=== PATIENT | male | born 1985 | race Caucasian/White ===

== ENCOUNTER 2020-12-03 08:53 | Emergency (ER) | payer OTHER ==
[2020-12-03 09:05] VITALS: BP 138/79
[2020-12-03] MEDS ORDERED: PROPARACAINE 0.5% OPHTH DROPS 15 ML LEFTEYE STA (09:07)
--- NOTE | 2020-12-03 09:38 | ED Physician Documentation ---
PD HPI OPHTHO - Stated complaint Stated Complaint: EYE PAIN - Chief complaint Chief Complaint: Heent - History obtained from History obtained from: Patient - Additional information Additional information: 35-year-old man with 20/20 vision at baseline, no corrective lenses, presents with eye irritation after hitting his left eye on a metal strap while working into the house on Thursday. Also with right eye irritation. He states that he does have chronic dry eyes and has had corneal abrasions before. Denies other injury Review of Systems Constitutional: denies: Fever Eyes: reports: Photophobia, Irritation. denies: Loss of vision, Decreased vision, Discharge PD PAST MEDICAL HISTORY - Past Medical History Past Medical History: Yes Cardiovascular: None Respiratory: None Neuro: None Endocrine/Autoimmune: None GI: None : None HEENT: None Psych: Depression, Anxiety Musculoskeletal: None Derm: None - Past Surgical History Past Surgical History: Yes - Present Medications Home Medications: Ambulatory Orders Medication Instructions Recorded Confirmed Mineral Oil/Petrolatum,White 3.5 gm OP QPM #1 bottle 12/03/20 [Lubricant Pm Eye Ointment] Ofloxacin 0.3% Ophth Drops 1 drops OPTH Q4H #5 ml 12/03/20 [Ocuflox 0.3% Ophth Drops] PARoxetine HCl [Paxil] 40 mg PO DAILY 12/03/20 12/03/20 - Allergies Allergies/Adverse Reactions: Allergies Allergy/AdvReac Type Severity Reaction Status Date / Time No Known Drug Allergies Allergy Verified 12/03/20 09:01 - Social History Does the pt smoke?: No Smoking Status: Never smoker Does the pt drink ETOH?: Yes Does the pt have substance abuse?: No - Immunizations Immunizations are current?: Yes PD ED PE NORMAL - Vitals Vital signs reviewed: Yes - General General: Alert and oriented X 3, No acute distress, Well developed/nourished - HEENT HEENT: Atraumatic, PERRL, EOMI, Other (Bilateral corneal abrasions on fluorescein exam. No foreign body) Results - Vitals Vitals: Vital Signs - 24 hr 12/03/20 09:02 Temperature 36.7 C Heart Rate 60 Respiratory 18 Rate Blood Pressure 138/79 H O2 Saturation 97 Oxygen O2 Source Room air PD MEDICAL DECISION MAKING - ED course ED course: 35-year-old man presents with corneal abrasion. Eyedrops prescribed. Patient will follow up with his primary doctor return precautions given. Departure - Departure Disposition: 01 Home, Self Care Clinical Impression: Corneal abrasion Condition: Good Instructions: ED Eye Injury Corneal Abrasion Prescriptions: Mineral Oil/Petrolatum,White [Lubricant Pm Eye Ointment] 3.5 gm OP QPM #1 bottle Ofloxacin 0.3% Ophth Drops [Ocuflox 0.3% Ophth Drops] 1 drops OPTH Q4H #5 ml Comments: You are seen in the emergency department for corneal abrasion, a scratch on the eye. Make sure you take your eyedrops as prescribed. Return to the emergency department if you have any new or worsening symptoms or other concerns. Wear safety goggles goggles when working around the house. Follow-up with your primary doctor
== END 2020-12-03 09:57 | disposition home or self-care (01) ==
LOC: ED 08:53
DX: S05.02XA Injury of conjunctiva and corneal abrasion without foreign body, left eye, initial encounter (principal); S05.01XA Injury of conjunctiva and corneal abrasion without foreign body, right eye, initial encounter; W20.8XXA Other cause of strike by thrown, projected or falling object, initial encounter; Y93.H3 Activity, building and construction; Y92.009 Unspecified place in unspecified non-institutional (private) residence as the place of occurrence of the external cause
CPT/HCPCS: 99282; 99283

== ENCOUNTER 2021-01-25 01:49 | Outpatient (CLI) | payer OTHER | END 2021-01-25 01:50 | disposition critical access hospital (66) | LOC: EMS 01:49 | DX: S80.212A Abrasion, left knee, initial encounter (principal); S60.512A Abrasion of left hand, initial encounter; V28.4XXA Motorcycle driver injured in noncollision transport accident in traffic accident, initial encounter; Y93.55 Activity, bike riding; Y92.410 Unspecified street and highway as the place of occurrence of the external cause; R41.3 Other amnesia | CPT/HCPCS: A0425; A0427 ==

== ENCOUNTER 2021-01-25 02:05 | Emergency (ER) | payer OTHER ==
[2021-01-25] MEDS ORDERED: KETOROLAC 30 MG/ML VIAL IVP STA (02:15)
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
[2021-01-25 02:45] LABS: BASOPHILS % (AUTO) 0.5 %; EOSINOPHILS # (AUTO) 0.3 10^3/uL (0.0-0.7); EOSINOPHILS % (AUTO) 3.3 %; HCT - HEMATOCRIT 40.5 % (42.0-52.0); HGB - HEMOGLOBIN 13.9 g/dL (14.0-18.0); LYMPHOCYTES # (AUTO) 2.3 10^3/uL (1.5-3.5); LYMPHOCYTES % (AUTO) 27.4 %; MEAN CORPUSCULAR HEMOGLOBIN 32.1 pg (27.0-31.0); MEAN CORPUSCULAR HGB CONC 34.3 g/dL (32.0-36.0); MEAN CORPUSCULAR VOLUME 93.5 fL (80.0-94.0); MEAN PLATELET VOLUME 9.6 fL (7.4-11.4); MONOCYTES # (AUTO) 0.7 10^3/uL (0.0-1.0); MONOCYTES % (AUTO) 8.7 %; NEUTROPHILS % (AUTO) 59.9 %; PLT - PLATELET COUNT 258 10^3/uL (130-450); RED BLOOD COUNT 4.33 10^6/uL (4.70-6.10); RED CELL DISTRIBUTION WIDTH 13.6 % (12.0-15.0); WHITE BLOOD COUNT 8.3 x10^3/uL (4.8-10.8)
[2021-01-25 02:55] LABS: ALBUMIN 4.2 g/dL (3.2-5.5); ALBUMIN/GLOBULIN RATIO 1.4 (1.0-2.2); BILIRUBIN,TOTAL 0.9 mg/dL (0.2-1.0); CALCIUM 8.8 mg/dL (8.5-10.3); CREATININE 1.1 mg/dL (0.6-1.2); POTASSIUM 3.6 mmol/L (3.5-5.0); TOTAL PROTEIN 7.3 g/dL (6.7-8.2)
[2021-01-25] MEDS ORDERED: LIDOCAINE VISCOUS 2% 100 ML BOTTLE MM STA (03:04)
[2021-01-25] MEDS ORDERED: LIDOCAINE VISCOUS 2% 15 ML UDC ONE (03:07)
[2021-01-25] MEDS ORDERED: BACITRACIN ZINC OINT 1 PACKET TOP STA ×2 (03:46→03:52)
[2021-01-25] MEDS ORDERED: ACETAMINOPHEN 325 MG TABLET PO STA (04:06)
[2021-01-25] MEDS ORDERED: MORPHINE 2 MG/ML CARPUJECT IVP STA (04:06)
[2021-01-25 05:20] VITALS: BP 150/69
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
--- NOTE | 2021-01-25 08:12 | CT Report ---
PROCEDURE: CERVICAL SPINE WO INDICATIONS: MCA - neck/thoracic pain TECHNIQUE: Noncontrast 3 mm thick sections acquired from the skull base to the T3 Sagittal and coronal reformats were then constructed. For radiation dose reduction, the following was used: automated exposure co ntrol, adjustment of mA and/or kV according to patient size. COMPARISON: None. FINDINGS: Image quality: Excellent. Bones: No fracture or traumatic listhesis. Facets congruent without subluxation or dislocation. Vis ualized superior ribs are intact. Soft tissues: Prevertebral soft tissues are normal in thickness. No paravertebral hematomas. No ap ical pneumothoraces. IMPRESSION: No CT evidence of acute traumatic cervical spine injury. Reviewed by: Otto Bradford MD on 01/25/2021 8:11 AM PDT Approved by: Otto Bradford MD on 01/25/2021 8:11 AM PDT Station ID: [id number]
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
--- NOTE | 2021-01-25 08:51 | XRAY Report ---
PROCEDURE: Hand 3 View RT INDICATIONS: MCA- hand pain 5th MC area TECHNIQUE: 3 views of the hand(s) acquired. COMPARISON: None FINDINGS: Bones: Remote healed fifth metacarpal fracture. No acute fracture. No suspicious bony lesions. Soft tissues: No suspicious soft tissue calcifications. IMPRESSION: No acute finding. Remote healed fifth metacarpal fracture. No significant change from preliminary rep ort. Reviewed by: Otto Bradford MD on 01/25/2021 8:50 AM PDT Approved by: Otto Bradford MD on 01/25/2021 8:50 AM PDT Station ID: [id number]
--- NOTE | 2021-01-25 08:52 | XRAY Report ---
PROCEDURE: Ankle 3 View LT INDICATIONS: MCA - ankle pain TECHNIQUE: 3 views of the ankle were acquired. COMPARISON: None FINDINGS: Bones: No fractures or dislocations. Ankle mortise is normally aligned. Mild ankle mortise joint sp jo narrowing and anterior tibial osteophytosis. No suspicious bony lesions. Soft tissues: No tibiotalar joint effusion. Achilles tendon appears normal. IMPRESSION: No acute finding. No significant change from pulmonary report. Reviewed by: Otto Bradford MD on 01/25/2021 8:50 AM PDT Approved by: Otto Bradford MD on 01/25/2021 8:50 AM PDT Station ID: [id number]
== END 2021-01-25 05:35 | disposition home or self-care (01) ==
LOC: EDUNIT# → SUPCPDRO 02:05 → ED 02:05
DX: S32.018A Other fracture of first lumbar vertebra, initial encounter for closed fracture (principal); S06.0X9A Concussion with loss of consciousness of unspecified duration, initial encounter; S93.402A Sprain of unspecified ligament of left ankle, initial encounter; S80.212A Abrasion, left knee, initial encounter; S90.812A Abrasion, left foot, initial encounter; V28.0XXA Motorcycle driver injured in noncollision transport accident in nontraffic accident, initial encounter; Y92.410 Unspecified street and highway as the place of occurrence of the external cause; F32.9 Major depressive disorder, single episode, unspecified; F41.9 Anxiety disorder, unspecified; Z79.899 Other long term (current) drug therapy
CPT/HCPCS: 36415; 70450; 72125; 72128; 73130; 73610; 80053; 83690; 85025; 96374; 96375; 99284; A9270

== ENCOUNTER 2021-02-28 10:39 | Outpatient (CLI) | payer OTHER ==
[2021-02-28 11:27] VITALS: BP 113/74
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
== END 2021-02-28 10:40 | disposition home or self-care (01) ==
LOC: SC 10:39
PROVIDERS: ATTEND Nurse Practitioner Family
DX: G47.33 Obstructive sleep apnea (adult) (pediatric) (principal); E66.9 Obesity, unspecified; Z68.38 Body mass index [BMI] 38.0-38.9, adult
CPT/HCPCS: 99203; 99212

== ENCOUNTER 2021-11-19 14:21 | Outpatient (CLI) | payer OTHER ==
[2021-11-19 15:22] VITALS: BP 154/92
--- NOTE | 2021-11-19 15:22 | SLEEP CARE CONSULTATION ---
Information from patient questionnaire entered by Isabel Trent MA. I have reviewed and concur with the information entered by Isabel Trent MA. This document represents the service I personally performed and the decisions made by , Chiquita Lehman ARNP. History of Present Illness Service Date and Time: 11/19/2021 1421 Previous diagnosis: Mild, Obstructive Sleep Apnea-Hypopnea Syndrome AHI: 7.0 (in 2016) Reason for follow up: first compliance (RESMED, FIGUEROA 10/14/2021), first compliance after device update Equipment type: CPAP Equipment obtained from: Other ([facility]) Mask style: Full face Mask brand: Resmed ([id number]) Backup mask available: No (will keep old mask when replaced) Last cushion change: 2 weeks Prior sleep studies: Yes Year and Where: 11/2016 [facility] additional information: GABBY LEON was diagnosed to have mild, AHI 7.0, obstructive sleep apnea- hypopnea syndrome and returned today for CPAP therapy first compliance after updating device follow-up. Sleep Study - Results Prior sleep studies: Yes Year and Where: 11/2016 [facility] CPAP Compliance Data - Data Reviewed with Patient Average duration of nightly device use: 7 HOURS 9 MINUTES Compliance rate %: 97 (10/19/2021-11/17/2021) Current pressure setting (cmH2O): 10-14 Average residual AHI: 1.4 Central apnea: .3 Obstructive apnea: .8 Hypopnea: .1 Average large leak: 8.2 Subjective Missed days of use due to: reports: travel ( [employer]) Patient concerns: reports: mask leak noise, condensation in mask/hose, dry mouth, nose, throat. denies: aerophagia, mask discomfort, air blowing in eyes, nasal congestion, epistaxis, other Observed to snore while using device: No Current pressure setting perceived as: comfortable On therapy, patient: reports: sleeping better, awakening more refreshed, being more awake and alert during the day, more rested overall. denies: drowsiness while driving Initial [place] Sleepiness Scale score: 15 (in 02/2021) Current [place] Sleepiness Scale score: 15 (11/19/2021) Allergies and Home Medications Known drug allergies: No Drug allergies reviewed: Yes Home medication list reviewed: Yes (PAROXETINE 60MG OD, dose increased) Allergy and home medication list: Allergies No Known Drug Allergies Allergy (Verified 01/25/21 02:25) Review of Systems Review of systems same as previous: Yes (no changes) Physical Exam Vital signs obtained and entered by: JOHN YUSUF Blood Pressure: 154/92 (RESP 18, PULSE 64, RIGHT,) Cuff size: wrist Heart Rate: 63 O2 Saturation: 98 (PAPER) Height: 6 ft 5 in Weight: 320 lb Weight change since last visit: 4 lb loss Body Mass Index: 37.9 BMI Classification: Obese Impression and Plan 1. Obstructive Sleep Apnea-Hypopnea Syndrome, mild, with good treatment compliance and good apnea control. On CPAP therapy, the patient has better sleep quality and is more rested overall. He has had some condensation in the tubing but states it is only when he overfills the water chamber. He has also had some oral dryness. Oral dryness can be reduced by adjusting humidity setting higher or heated hose lower or by adjusting both settings. Verbal instructions given on how to change humidity and heated hose settings with rationale explaining why to change. Patient denies problems with nasal congestion, epistaxis, skin irritation or aerophagia. Patient's apnea severity and rationale for treatment to reduce apnea, improve sleep quality and reduce cardiovascular and cerebrovascular events was reviewed. I also reviewed the benefit of consistent device use of CPAP for anxiety and ADD. 2. Obesity, unspecified. Patient has lost weight. Currently patients BMI is 37.9. Obesity increases the risk of apnea, CPAP pressure requirements and overall health risks especially cardiovascular and diabetes. Thus patient is advised to lose weight. Weight loss can be done with reducing portion size, reducing refined foods and balancing content with vegetables, fruit and whole grain foods. In addition, patient encouraged to get regular exercise. The patient's CPAP pressure range should accommodate some weight loss. Symptoms to report for additional pressure adjustment discussed. * Continue auto CPAP pressure at 10-14 cmH2O * Notify me if snoring with mask or feeling that the pressure is too much or too little * Attempt to lose weight * Call this office if any problems using CPAP * Return for follow up in 1 year, or sooner if concerns arise Counseling Topics: Spare mask, Weight loss health impact Visit Type: In Office Time Spent with Patient (minutes): 20 Provider Statement: I spent 100% of the Face to Face Visit with the patient with greater than 50% spent counseling the patient and coordination of care.
== END 2021-11-19 14:22 | disposition home or self-care (01) ==
LOC: SC 14:21
PROVIDERS: ATTEND Nurse Practitioner Family
DX: G47.33 Obstructive sleep apnea (adult) (pediatric) (principal); E66.9 Obesity, unspecified; Z68.37 Body mass index [BMI] 37.0-37.9, adult
CPT/HCPCS: 99212; 99213

== ENCOUNTER 2023-01-26 11:16 | Emergency (ER) | payer OTHER ==
--- NOTE | 2023-01-26 12:19 | ED Physician Documentation ---
History of Present Illness - Stated complaint Stated Complaint: H/A, SORE THROAT - Chief complaint Chief Complaint: General - History obtained from History obtained from: Patient - Additonal information Additional information: Otherwise healthy 37-year-old gentleman presents with 2 days of mild gradual onset headache, sore throat, and urethral discharge without dysuria. He has had 3 sexual partners in the last 6 months. He does not know of any contagious illnesses that he has been exposed to. Denies fevers. PD PAST MEDICAL HISTORY - Past Medical History Cardiovascular: None Respiratory: None Neuro: None Endocrine/Autoimmune: None GI: None : None HEENT: None Psych: Depression, Anxiety Musculoskeletal: None Derm: None - Past Surgical History Past Surgical History: Yes - Present Medications Home Medications: Ambulatory Orders Medication Instructions Recorded Confirmed PARoxetine HCL [Paxil] 40 mg PO DAILY 12/03/20 01/25/21 HYDROcod/ACETAM 5/325 [[place] 5/325] 1 ea PO Q6H PRN #15 tablet 01/25/21 Doxycycline [Vibramycin] 100 mg PO BID #14 tablet 01/26/23 - Allergies Allergies/Adverse Reactions: Allergies Allergy/AdvReac Type Severity Reaction Status Date / Time No Known Drug Allergies Allergy Verified 01/25/21 02:25 - Social History Does the pt smoke?: No Smoking Status: Never smoker Does the pt drink ETOH?: Yes Does the pt have substance abuse?: No - Immunizations Immunizations are current?: Yes - POLST Patient has POLST: No PD ED PE NORMAL - Vitals Vital signs reviewed: Yes - General General: Alert and oriented X 3, No acute distress - HEENT HEENT: PERRL, EOMI, Other (Mildly red tonsillar pillars without exudates) - Neck Neck: Supple, no meningeal sign, No bony TTP - Abdomen Abdomen: Non tender - Neuro Neuro: Alert and oriented X 3, Normal speech Results - Vitals Vitals: Vital Signs - 24 hr 01/26/23 01/26/23 11:48 13:03 Temperature 36.7 C 36.6 C Heart Rate 84 82 Respiratory 20 19 Rate Blood Pressure 140/69 H 139/65 H O2 Saturation 97 98 Oxygen O2 Source Room air - Labs Labs: Laboratory Tests 01/26/23 01/26/23 12:00 12:30 Chlam trachomat DNA PCR NEGATIVE N.gonorrhoeae DNA (PCR) NEGATIVE Group A Strep Rapid Negative T. vaginalis (PCR) NEGATIVE PD Medical Decision Making - ED course ED course: 37-year-old gentleman with combination of benign appearing pharyngitis and urethritis. Strep negative, will treat for urethritis with ceftriaxone 500 mg IM and 1 week of doxycycline. Departure - Departure Disposition: 01 Home, Self Care Clinical Impression: Urethritis Condition: Good Record reviewed to determine appropriate education?: Yes Instructions: ED Urethritis Infec Vs Inflam Male Prescriptions: Doxycycline [Vibramycin] 100 mg PO BID #14 tablet Comments: Your strep test is negative. Results of the urine test for STDs are pending and we will call you with pertinent positive results, but given the symptoms and combination of sore throat I am treating you for the most common etiologies of that with antibiotics. Specifically if you end up having gonorrhea or chlamydia you will have the specific treatment necessary for that. Stay out of the sun while on the doxycycline antibiotic as it will make you sun sensitive. Call your doctor to arrange a follow-up appointment, make the next available appointment. In the interim, return anytime if worse or if new symptoms develop. Discharge Date/Time: 01/26/23 13:24
[2023-01-26 12:43] LABS: RAPID STREP SCREEN Negative (Negative)
[2023-01-26] MEDS ORDERED: LIDOCAINE 1% 2 ML VIAL MC ONE (12:52)
[2023-01-26] MEDS ORDERED: cefTRIAXone 500 MG VIAL IM STA (12:52)
[2023-01-26 13:08] VITALS: BP 139/65; O2SAT 98
[2023-01-26 21:26] LABS: CHLAMYDIA TRACHOMATIS DNA NEGATIVE (NEGATIVE); NEISSERIA GONORRHOEAE DNA NEGATIVE (NEGATIVE); TRICHOMONAS VAGINALIS DNA NEGATIVE (NEGATIVE)
== END 2023-01-26 13:24 | disposition home or self-care (01) ==
LOC: ED 11:16
DX: N34.2 Other urethritis (principal)
CPT/HCPCS: 87070; 87430; 87491; 87591; 87661; 96372; 99283

== ENCOUNTER 2023-03-19 08:40 | Outpatient (CLI) | payer OTHER | END 2023-03-19 08:41 | disposition EMS.NT | LOC: EMS 08:40 | DX: Z04.1 Encounter for examination and observation following transport accident (principal) ==

== ENCOUNTER 2023-03-20 11:32 | Emergency (ER) | payer OTHER ==
[2023-03-20 11:43] VITALS: BP 146/81; O2SAT 95
--- NOTE | 2023-03-20 12:55 | XRAY Report ---
PROCEDURE: Shoulder 3 View RT INDICATIONS: trauma TECHNIQUE: 3 views of the shoulder were acquired. COMPARISON: None. FINDINGS: Bones: No fractures or dislocations. No suspicious bony lesions. Visualized ribs appear intact. Soft tissues: No suspicious soft tissue calcifications. The visualized lungs are within normal limi ts. IMPRESSION: No acute bony abnormality. If pain persists with conservative management, consider repeat radiographs in 10-14 days or cross-sectional imaging. Reviewed by: Sunny Cano MD on 03/20/2023 12:54 PM PDT Approved by: Sunny Cano MD on 03/20/2023 12:54 PM PDT Station ID: [id number]
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
== END 2023-03-20 13:36 | disposition home or self-care (01) ==
LOC: ED 11:32
DX: S20.211A Contusion of right front wall of thorax, initial encounter (principal); S40.011A Contusion of right shoulder, initial encounter; V57.5XXA Driver of pick-up truck or van injured in collision with fixed or stationary object in traffic accident, initial encounter; Y93.89 Activity, other specified; Y92.410 Unspecified street and highway as the place of occurrence of the external cause
CPT/HCPCS: 99283

== ENCOUNTER 2023-05-19 16:00 | Outpatient (CLI) | payer OTHER ==
--- NOTE | 2023-05-20 07:40 | SLEEP CARE CONSULTATION ---
Information from patient questionnaire entered by Tunde Krishnamurthy. I have reviewed and concur with the information entered by Tunde Krishnamurthy. This document represents the service I personally performed and the decisions made by me, Chiquita Lehman ARNP. History of Present Illness Service Date and Time: 05/19/2023 1620 Previous diagnosis: Mild, Obstructive Sleep Apnea-Hypopnea Syndrome AHI: 7.0 (in 2016) Reason for follow up: annual (LAST SEEN 11/2021) Equipment type: CPAP (RESMED) Equipment obtained from: Other ([employer]; getting supplies) Mask style: Full face Mask brand: Resmed ([id number]) Backup mask available: Yes Last cushion change: 2 months Prior sleep studies: Yes Year and Where: 11/2016 [facility] additional information: GABBY LEON was diagnosed to have mild, AHI 7, obstructive sleep apnea- hypopnea syndrome and returned today for CPAP therapy annual follow-up. Sleep Study - Results Prior sleep studies: Yes Year and Where: 11/2016 [facility] CPAP Compliance Data - Data Reviewed with Patient Average duration of nightly device use: 6 HRS 50 MINS Compliance rate %: 79 (05/15/2022-05/10/2023; 313/361 days used) Current pressure setting (cmH2O): 10-14 Average residual AHI: 1.1 Central apnea: 0.3 Obstructive apnea: 0.6 Average large leak: 11.9 L/min Subjective Missed days of use due to: reports: other (divorce, living out of car for a month) Patient concerns: reports: mask leak noise, dry mouth, nose, throat. denies: aerophagia, mask discomfort, air blowing in eyes, condensation in mask/hose, nasal congestion, epistaxis Observed to snore while using device: No Current pressure setting perceived as: comfortable On therapy, patient: reports: sleeping better, awakening more refreshed, being more awake and alert during the day, more rested overall. denies: drowsiness while driving Initial [place] Sleepiness Scale score: 15 (in 02/2021) Current [place] Sleepiness Scale score: 15 Allergies and Home Medications Known drug allergies: No Drug allergies reviewed: Yes Home medication list reviewed: Yes (Paroxetine down to 10 mg) Allergy and home medication list: Allergies No Known Drug Allergies Allergy (Verified 05/18/23 09:52) Review of Systems Review of systems same as previous: Yes (no changes) Physical Exam Vital signs obtained and entered by: TUNDE Kearney MA Blood Pressure: 124/76 (could not weight pt, power out at office) Cuff size: regular (right arm) Heart Rate: 75 O2 Saturation: 98 Height: 6 ft 5 in Impression and Plan 1. Obstructive Sleep Apnea-Hypopnea Syndrome, mild, with good treatment compliance and good apnea control. On CPAP therapy, the patient has better sleep quality and is more rested overall. Patient has significant improvement of their sleep apnea and is satisfied with current CPAP therapy. Patient states he got a divorce and left out of his car for about a month. He has been staying with friends and sometimes is not able to use his CPAP just due to the situation. However, he did reach compliance for the last year at 79%. He does state he gets some dry mouth and throat sometimes. Oral dryness can be reduced by adjusting humidity setting higher or heated hose lower or by adjusting both settings. Patient advised that chronic oral dryness can affect dental health and advised to follow up with dentist. In addition, there are oral dryness products that can be used to reduce dryness such as Biotene products, Dry mouth rinse and Xylomelts. He voiced understanding. Patient denies problems with nasal congestion, epistaxis, skin irritation or aerophagia. Patient's apnea severity and rationale for treatment to reduce apnea, improve sleep quality and reduce cardiovascular and cerebrovascular events was reviewed. I also reviewed the benefit of consistent device use of CPAP for anxiety and attention deficit. * Continue auto CPAP pressure at 10-14 cmH2O * Update supply prescription * Notify me if snoring with mask or feeling that the pressure is too much or too little * Attempt to lose weight * Call this office if any problems using CPAP * Return for follow up in 1 year, or sooner if concerns arise Counseling Topics: Spare mask, Weight loss health impact Prescriptions: Device supplies Follow up with Sleep Care in: 1 year Visit Type: In Office Time Spent with Patient (minutes): 22 Provider Statement: I spent 100% of the Face to Face Visit with the patient with greater than 50% spent counseling the patient and coordination of care.
[2023-05-20 07:45] VITALS: BP 124/76; O2SAT 98
== END 2023-05-19 23:59 | disposition home or self-care (01) ==
LOC: SC 16:00
PROVIDERS: ATTEND Nurse Practitioner Family
DX: G47.33 Obstructive sleep apnea (adult) (pediatric) (principal)
CPT/HCPCS: 99212; 99213